=== PATIENT | male | born 1975 | race Caucasian/White ===

== ENCOUNTER 2018-07-05 08:07 | Outpatient (CLI) | payer OTHER ==
--- NOTE | 2018-07-05 12:00 | MRI ---
MRI LEFT ANKLE WITHOUT CONTRAST: INDICATIONS: History of posttraumatic osteoarthrosis of the left ankle. COMPARISON: None. TECHNIQUE: Multiplanar, multisequence MR images were obtained of the left ankle without IV contrast. FINDINGS: The ATFL, PTFL, calcaneofibular, deltoid, and visualized osmotic ligaments are intact. The medial and lateral flexor tendons are normal appearing. The Achilles and extensor tendons are no rmal appearing. There is a 1.7 x 1.6 cm osteochondral lesion involving the lateral talar dome, on image 27 of series 9 and on image 15 of series 7. No unstable osteochondral fragment is evident. No large joint effusi on is evident. The visualized Lisfranc ligament is intact. The sinus tarsi has normal signal intens ity. The visualized plantar fascia appears within normal limits. No additional marrow signal abnorm ality is grossly evident. IMPRESSION: 1. Osteochondral lesion of the lateral talar dome without evidence of instability. 2. The intrinsic and extrinsic ligaments of the ankle are intact. 3. The flexor and extensor tendons of the ankle appear within normal limits. POS: [facility]
== END 2018-07-05 08:08 | disposition home or self-care (01) ==
LOC: BICMRI 08:07
PROVIDERS: ATTEND Orthopaedic Surgery
DX: M19.172 Post-traumatic osteoarthritis, left ankle and foot (principal); M89.9 Disorder of bone, unspecified

== ENCOUNTER 2019-09-06 10:44 | Outpatient (CLI) | payer OTHER ==
--- NOTE | 2019-09-06 11:06 | RAD ---
XR Lumbar Spine Min 4 View HISTORY: Low back pain. Injury 2 weeks ago. COMPARISON: None. FINDINGS: There is degenerative disc narrowing at the L1-2 level with vacuum disc phenomenon. Promine nt osteophytic changes are seen at this level. The remainder the disc spaces are fairly well-preserved. There are degenerative facet changes in the lower lumbar spine. Pedicles appear intac t. Very minimal scoliotic change convex to the right is noted. Incidental note is made of an upper pole right renal calculus measuring the 6 mm range. IMPRESSION: Arthritic changes of the spine as noted above.
== END 2019-09-06 10:45 | disposition home or self-care (01) ==
LOC: BICRAD 10:44
PROVIDERS: ATTEND Neurological Surgery
DX: M54.5 Low back pain (principal); M47.816 Spondylosis without myelopathy or radiculopathy, lumbar region
CPT/HCPCS: 72110

== ENCOUNTER 2019-10-10 10:47 | Outpatient (CLI) | payer OTHER ==
--- NOTE | 2019-10-10 12:05 | MRI ---
MRI Lumbar Spine WO Con HISTORY: Low back pain radiating down the left leg into the calf. Intervertebral disc disorders with radiculopathy COMPARISON: None. FINDINGS: A transitional vertebra is seen which has been labeled S1 for the purpose of this discussion. The vertebral body heights and marrow signal are maintained. There is disc desiccation and displaceme nt or narrowing at L1-2 level. Facet hypertrophic changes are noted most prominent at L3-4, L4-5 and L5-S1 levels. Conus medullaris ends at T12-L1 level. There is a large left paracentral disc protrusion at L5-S1 level causing compression of the anterior thecal sac. No significant neural foraminal stenosis is seen. The paraspinal musculature is normal. IMPRESSION: Large left paracentral disc protrusion at L5-S1 level. Transcribed Date/Time: 10/10/2019 12:09 PM
== END 2019-10-10 10:48 | disposition home or self-care (01) ==
LOC: MRI 10:47
PROVIDERS: ATTEND Nurse Practitioner Family
DX: M51.16 Intervertebral disc disorders with radiculopathy, lumbar region (principal); M51.17 Intervertebral disc disorders with radiculopathy, lumbosacral region
CPT/HCPCS: 72148

== ENCOUNTER 2022-05-13 08:19 | Outpatient (CLI) | payer BC | END 2022-05-13 08:20 | disposition home or self-care (01) | LOC: TBSIIMAG 08:19 | PROVIDERS: ATTEND Orthopaedic Surgery | DX: M24.812 Other specific joint derangements of left shoulder, not elsewhere classified (principal); S43.432A Superior glenoid labrum lesion of left shoulder, initial encounter; S46.212A Strain of muscle, fascia and tendon of other parts of biceps, left arm, initial encounter ==